=== PATIENT | male | born 1955 | race American Indian/Alaskan Native ===

== ENCOUNTER 2021-12-10 12:56 | Emergency (ER) | payer MEDICARE ==
--- NOTE | 2021-12-10 13:13 | Event Note ---
ED Screening Note ED Screening Note: SENT HERE BY OPTHA DUE TO LOSS OF PERIPHERAL VISION SHE IS CO FOR TIA/CVA PERIPHERAL VISION IS DEC PER PT NO HX CVA NO FOCAL DEF PT APPEARS ILL/WEAK HR 50 ON EXAM PMH HTN HEART TROUBLE VESTIBULAR DISEASE ASTHMA NO DM NO CVA/TIA NO CIG/ETOH RX- HAS LIST ASA IS ALL HE CAN REMEMBER This initial assessment/diagnostic orders/clinical plan/treatment(s) is/are subject to change based on patients health status, clinical progression and re- assessment by fellow clinical providers in the ED. Further treatment and workup at subsequent clinical providers discretion. Patient/guardian urged not to elope from the ED as their condition may be serious if not clinically assessed and managed. Initial orders include: RO TIA/CVA
[2021-12-10 14:04] LABS: Basophils % (Auto) 0.9 % (0.0-1.8); Eosinophils # (Auto) 0.2 K/mm3 (0.0-0.4); Eosinophils % (Auto) 4.8 % (0.0-4.3); Hematocrit 41.3 % (35.5-45.6); Hemoglobin 13.5 gm/dl (11.8-15.2); Lymphocytes % (Auto) 41.7 % (13.4-35.0); Mean Corpuscular HGB Conc 33 % (32-34); Mean Corpuscular Volume 85 fl (84-94); Monocytes # (Auto) 0.6 K/mm3 (0.0-0.8); Monocytes % (Auto) 11.7 % (0.0-7.3); Platelet Count 255 K/mm3 (140-440); Red Blood Count 4.85 M/mm3 (3.65-5.03); Red Cell Distribution Width 14.1 % (13.2-15.2)
--- NOTE | 2021-12-10 14:06 | Emergency Department Report ---
ED Eye Problem HPI - General Chief complaint: Eye Problems Stated complaint: POSSIBLE MILD STROKE Time Seen by Provider: 12/10/21 13:24 Source: patient Mode of arrival: Ambulatory Limitations: No Limitations - History of Present Illness Initial comments: Patient presents from his bi consultant office for visual changes. Last night while watching TV he noticed that the peripheral vision of his right eye seem to be off. He has had a retinal injury before. Patient went to his bi consultant today. They told him after examination that this was not a retinal issue. They were concerned for possible stroke and sent the patient here. Patient has no weakness in the arm or leg. He has not noticed any speech change. He has no paresthesias. Patient has only noticed this with the right lateral peripheral vision. - Related Data Allergies Allergy/AdvReac Type Severity Reaction Status Date / Time oxycodone Allergy Unknown Verified 12/10/21 13:02 Penicillins Allergy Unknown Verified 12/10/21 13:02 ED Review of Systems ROS: Stated complaint: POSSIBLE MILD STROKE Other details as noted in HPI Comment: All other systems reviewed and negative Constitutional: denies: fever Eyes: as per HPI ENT: denies: throat pain Respiratory: denies: cough Cardiovascular: denies: chest pain Endocrine: denies: unexplained weight loss Gastrointestinal: denies: abdominal pain Genitourinary: denies: dysuria Musculoskeletal: denies: back pain Skin: denies: rash Neurological: denies: headache Hematological/Lymphatic: denies: easy bruising ED Past Medical Hx - Past Medical History Previous Medical History?: Yes Hx Hypertension: Yes - Surgical History Past Surgical History?: No - Family History Family history: hypertension ED Physical Exam - General Limitations: No Limitations, Other (Pulse ox noted normal) General appearance: alert, in no apparent distress - Head Head exam: Present: atraumatic, normocephalic - Eye Eye exam: Present: normal appearance, PERRL, EOMI. Absent: scleral icterus - ENT ENT exam: Present: normal orophraynx, normal external ear exam - Neck Neck exam: Present: normal inspection. Absent: meningismus - Respiratory Respiratory exam: Present: normal lung sounds bilaterally. Absent: respiratory distress - Cardiovascular Cardiovascular Exam: Present: regular rate, normal rhythm - GI/Abdominal GI/Abdominal exam: Present: soft. Absent: tenderness - Extremities Exam Extremities exam: Present: normal capillary refill - Back Exam Back exam: Absent: CVA tenderness (R), CVA tenderness (L) - Neurological Exam Neurological exam: Present: alert, oriented X3, CN II-XII intact, normal gait, other (Patient does seem to have a visual field deficit involving the lateral vision in the right eye only. There is no apparent visual field deficit involving the left eye.). Absent: reflexes normal - Psychiatric Psychiatric exam: Present: normal affect, normal mood - Skin Skin exam: Present: warm, dry ED Course Vital Signs 12/10/21 13:02 Temperature 97.8 F Pulse Rate 56 L Respiratory 18 Rate Blood Pressure 146/84 O2 Sat by Pulse 98 Oximetry - Reevaluation(s) Reevaluation #1: 12/10/21 14:06 Patient had been seen as part of the MSE process. I assumed care with labs and CT pending. Old records noted. ED Medical Decision Making - Lab Data Result diagrams: 12/10/21 13:41 Critical Care Time: No Critical care attestation.: If time is entered above; I have spent that time in minutes in the direct care of this critically ill patient, excluding procedure time. ED Disposition Clinical Impression: Vision disturbance Disposition: 01 HOME / SELF CARE / HOMELESS Is pt being admited?: No Condition: Stable Instructions: Visual Disturbances Additional Instructions: Drink any water. Return for problems. Continue to follow-up with your bi consultant as well as the specialist. Follow-up with your family doctor as well. Referrals: PRIMARY MD SAMUEL [Primary Care Provider] - 3-5 Days JULIOCESAR AYALA MD [Staff Physician] - 3-5 Days MANISHA SUÁREZ MD [Staff Physician] - 3-5 Days
--- NOTE | 2021-12-10 14:20 | Cat Scan Report ---
CT head/brain wo con INDICATION: Weakness. TECHNIQUE: Routine CT head. All CT scans at this location are performed using CT dose reduction for A FELICIA by means of automated exposure control. COMPARISON: None. FINDINGS: Intracranial: Addison-white matter differentiation is maintained. No intracranial hemorrhage. No extra a xial collection. No hydrocephalus. No herniation. Sinuses: Prior sinus surgery with persistent significant mucosal thickening throughout the paranasal sinuses. Hyperostosis botello consistent with chronicity. There is high attenuation seen consistent wit h inspissated mucus or benign allergic fungal colonization. Mastoid air cells are clear. Orbits: Globes are intact. Calvarium: No acute fracture. IMPRESSION: 1. No acute intracranial abnormality. 2 . Severe pansinusitis. Signer Name: Rd Blankenship MD Signed: 12/10/2021 2:15 PM Workstation Name: [id number]
[2021-12-10 15:24] LABS: Alanine Aminotransferase 13 units/L (7-56); Albumin 4.3 g/dL (3.9-5); BUN/Creatinine Ratio 14; Blood Urea Nitrogen 13 mg/dL (9-20); Calcium 9.6 mg/dL (8.4-10.2); Hemolysis Index 13
[2021-12-10 17:02] LABS: Bilirubin,Urine NEG (Negative); Blood,Urine NEG (Negative); Color,Urine Yellow (Yellow); Mucus,Urine FEW /HPF; Protein,Urine <15 mg/dL mg/dL (Negative); Urobilinogen,Urine < 2.0 mg/dL (<2.0); WBC,Urine < 1.0 /HPF (0.0-6.0)
--- NOTE | 2021-12-10 17:05 | Cat Scan Report ---
CT head/brain w con INDICATION / CLINICAL INFORMATION: 66 years Male; assess for cavernous sinus thrombosis 100 ML OMNI 300 . TECHNIQUE: Routine CT head without contrast. All CT scans at this location are performed using CT dos e reduction for ALARA by means of automated exposure control. COMPARISON: 12/10/2021 FINDINGS: BRAIN / INTRACRANIAL CONTENTS: No acute hemorrhage, mass effect, midline shift, hydrocephalus, or acu te, large territorial infarct. No signs of significant atrophy or chronic infarct. No significant whi te matter abnormality seen. I see no signs of abnormal enhancement following contrast administration. Specifically, no signs of c avernous sinus thrombosis appreciated. CRANIOCERVICAL JUNCTION: No significant abnormality. ORBITS: No significant abnormality of visualized orbits. SINUSES / MASTOIDS: There is near complete opacification of the frontal sinuses, ethmoids, and maxill juliette antra. Mild to moderate mucosal thickening seen in the sphenoid sinuses. Air-fluid level is seen in the left sphenoid sinus. ADDITIONAL FINDINGS: None. IMPRESSION: 1. No focal mass, hemorrhage, hydrocephalus, or acute, large territorial infarct. 2. Sinus disease, as described above. Signer Name: Dave Beltran MD, III Signed: 12/10/2021 5:01 PM Workstation Name: [id number]
--- NOTE | 2021-12-10 17:08 | Emergency Department Report ---
HPI - General Chief Complaint: Eye Problems Time Seen by Provider: 12/10/21 13:24 ED Past Medical Hx - Past Medical History Previous Medical History?: Yes Hx Hypertension: Yes - Surgical History Past Surgical History?: No ED Review of Systems ROS: Stated complaint: POSSIBLE MILD STROKE Other details as noted in HPI Constitutional: denies: fever Eyes: as per HPI ENT: denies: throat pain Respiratory: denies: cough Cardiovascular: denies: chest pain Endocrine: denies: unexplained weight loss Gastrointestinal: denies: abdominal pain Genitourinary: denies: dysuria Musculoskeletal: denies: back pain Skin: denies: rash Neurological: denies: headache Hematological/Lymphatic: denies: easy bruising Physical Exam - Physical Exam Vital Signs: Vital Signs 12/10/21 12/10/21 13:02 16:11 Temperature 97.8 F Pulse Rate 56 L 64 Respiratory 18 18 Rate Blood Pressure 146/84 Blood Pressure 144/81 [Left] O2 Sat by Pulse 98 98 Oximetry ED Course Vital Signs 12/10/21 12/10/21 13:02 16:11 Temperature 97.8 F Pulse Rate 56 L 64 Respiratory 18 18 Rate Blood Pressure 146/84 Blood Pressure 144/81 [Left] O2 Sat by Pulse 98 98 Oximetry ED Medical Decision Making - Lab Data Result diagrams: 12/10/21 13:41 12/10/21 13:41 - EKG Data -: EKG Interpreted by Me - EKG Data 12/10/21 17:07 Sinus bradycardia. Normal axis. First-degree AV block. No ectopy. There are deeply inverted T waves noted in leads V3 through V6 as well as I, II, III, and aVF. No significant ST segment abnormalities - Medical Decision Making Signout received from Dr. Weiss. This is a 66-year-old male presenting with right eye lateral visual field defect. He has been examined by his obgyn specialist who ruled out retinal detachment. He has had CT of the head which shows no signs of ischemia or stroke. Labs are still pending. Labs reveal no significant leukocytosis or anemia. Kidney function is normal and there are no significant electrolyte abnormalities. Troponin is negative. CT of the head reveals severe pansinusitis but no other findings. I have ordered IV contrasted CT of the head to assess for evidence of cavernous sinus thrombosis. I went to assess the patient who states he feels fine and his symptoms are unchanged. He also disclosed that he has a chronic vestibular disorder which causes him chronic dizziness and disequilibrium with balance issues. I performed an examination and he has no focal neurologic deficits. No pain with extraocular movements. The patient's EKG reveals deeply inverted T waves in the inferior and lateral leads. The patient has no chest pain or ACS symptoms. I discussed with the patient and he disclosed that he has had a significantly abnormal EKG for "a long time" I discussed the EKG with Dr. Dinh who reviewed it and says that there is no STEMI and findings are likely chronic Contrasted CT of the head shows no evidence of cavernous sinus thrombosis or other acute abnormality with the exception of pansinusitis. I discussed with the patient his pansinusitis and he says this has been a chronic issue for him for which he is seeing both ENT and neurology. He states that his neurologist is prescribing him steroids for this issue and it is a chronic problem. Given that it is chronic in nature we will not initiate new medications but will defer to the patient's specialist for further management. Patient was given referral to ENT and neurology and I discussed the importance of following up with his obgyn specialist as well as his neurologist and ENT doctor for further management of his vision issues. The patient expressed understanding and agreement with this plan of care. He will return for any new concerning symptoms. Critical care attestation.: If time is entered above; I have spent that time in minutes in the direct care of this critically ill patient, excluding procedure time. ED Disposition Clinical Impression: Vision disturbance, Pansinusitis Disposition: 01 HOME / SELF CARE / HOMELESS Is pt being admited?: No Condition: Stable Instructions: Sinusitis, Adult, Visual Disturbances Additional Instructions: Drink sufficient water. Return for worsening symptoms or new health concerns continue to follow-up with your neurologist, obgyn specialist as well as ENT specialist for further management and follow-up with your family doctor as well. Referrals: [facility] [Provider Group] - 3-5 Days JAILYN TEIXEIRA MD [Referring] - 3-5 Days MANISHA SUÁREZ MD [Staff Physician] - 3-5 Days
[2021-12-10 18:21] VITALS: BP 149/75
--- NOTE | 2021-12-11 14:40 | Electrocardiograph Report ---
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
== END 2021-12-10 18:21 | disposition home or self-care (01) ==
LOC: ED 12:56
DX: H53.141 Visual discomfort, right eye (principal); J32.4 Chronic pansinusitis; I10 Essential (primary) hypertension; Z88.0 Allergy status to penicillin; Z91.09 Other allergy status, other than to drugs and biological substances; R42 Dizziness and giddiness
CPT/HCPCS: 36415; 70450; 70460; 80053; 81001; 83735; 84100; 84443; 84484; 85025; 93005; 93010; 99284; Q9967

== ENCOUNTER 2022-01-08 11:47 | Emergency (ER) | payer MEDICARE ==
[2022-01-08 12:00] VITALS: BP 128/64
[2022-01-08 12:58] LABS: Basophils % (Auto) 0.8 % (0.0-1.8); Eosinophils # (Auto) 0.2 K/mm3 (0.0-0.4); Eosinophils % (Auto) 4.2 % (0.0-4.3); Hematocrit 39.6 % (35.5-45.6); Hemoglobin 12.8 gm/dl (11.8-15.2); Lymphocytes % (Auto) 42.2 % (13.4-35.0); Mean Corpuscular HGB Conc 32 % (32-34); Mean Corpuscular Volume 87 fl (84-94); Monocytes # (Auto) 0.6 K/mm3 (0.0-0.8); Monocytes % (Auto) 13.3 % (0.0-7.3); Platelet Count 253 K/mm3 (140-440); Red Blood Count 4.55 M/mm3 (3.65-5.03); Red Cell Distribution Width 14.6 % (13.2-15.2)
--- NOTE | 2022-01-08 13:13 | Emergency Department Report ---
ED Chest Pain HPI - General Chief Complaint: Chest Pain Stated Complaint: CHEST PAIN Time Seen by Provider: 01/08/22 12:54 Source: patient Mode of arrival: Ambulatory Limitations: No Limitations - History of Present Illness Initial Comments: 66-year-old male with a history of CAD with stent placed in October 2020, cardiomyopathy, hypertension presents to the hospital planing of chest pain for few days. Pain is in the center of his chest at the lower sternal area. Pain has sharp reproducible with palpation and with twisting of his torso from left to right. Pain is rated 3/10 in intensity but it was rated 10/10 last night. Patient denies associated symptoms of nausea, vomiting, diaphoresis, lightheadedness, leg edema, or calf tenderness. He is compliant with all his medications and denies recent travel or history of PE/DVT. Patient states he walks daily. His last walk was yesterday and denies any exacerbation of chest pain or associated symptoms during his walk. 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 Patient states his EKG has been abnormal for "a long time". Severity scale (0 -10): 5 - Related Data Allergies Allergy/AdvReac Type Severity Reaction Status Date / Time oxycodone Allergy Unknown Verified 12/10/21 13:02 Penicillins Allergy Unknown Verified 12/10/21 13:02 Heart Score - HEART Score History: Slightly suspicious EKG: Non-specific Age: > 65 Risk factors: > 3 risk factors or hx of atherosclerotic disease Troponin: < normal limit HEART Score: 5 - EKG Read Time Time EKG Completed: 12:04 EKG Read Time: 12:09 ED Review of Systems ROS: Stated complaint: CHEST PAIN Other details as noted in HPI Comment: All other systems reviewed and negative ED Past Medical Hx - Past Medical History Hx Hypertension: Yes Hx Heart Attack/AMI: Yes (Cardiomyopathy, CAD) - Surgical History Hx Coronary Stent: Yes (oct 2020) - Family History Family history: CAD/IN - Social History Smoking Status: Never Smoker ED Physical Exam - General Limitations: No Limitations - Other Other exam information: General: No acute distress Head: Atraumatic Eyes: normal appearance ENT: Moist mucous membranes Neck: Normal appearance, no midline tenderness Chest: Clear to auscultation bilaterally, reproducible lower sternal chest wall tenderness to palpation with movement CV: Regular rate and rhythm Abdomen: Soft, normal bowel sounds, nontender, nondistended, no rebound or guard ing Back: Normal inspection Extremity: Normal inspection, full range of motion, no calf tenderness or leg edema Neuro: Alert O x 3, no facial asymmetry, speech clear, no gross motor sensory deficit Psych: Appropriate behavior Skin: No rash ED Course Vital Signs 01/08/22 11:55 Temperature 98.5 F Pulse Rate 53 L Respiratory 18 Rate Blood Pressure 128/64 [Right] O2 Sat by Pulse 97 Oximetry - Consultations Consultation #1: 01/08/22 15:48 case d/w DR Mcgraw, also confirms deep t waves are chronic. will encourage outpt f/u in office DARIAN score - Darian Score Age > 65: (0) No Aspirin use within the Past 7 Days: (1) Yes 3 or more CAD Risk Factors: (1) Yes 2 or more Angina events in past 24 hrs: (0) No Known CAD with more than 50% Stenosis: (1) Yes Elevated Cardiac Markers: (0) No ST Deviation Greater than 0.5mm: (1) Yes DARIAN Score: 4 ED Medical Decision Making - Lab Data Result diagrams: 01/08/22 12:43 01/08/22 12:43 Lab Results 01/08/22 01/08/22 01/08/22 Range/Units 12:43 12:43 12:43 WBC 4.7 (4.5-11.0) K/mm3 RBC 4.55 (3.65-5.03) M/mm3 Hgb 12.8 (11.8-15.2) gm/dl Hct 39.6 (35.5-45.6) % MCV 87 (84-94) fl MCH 28 (28-32) pg MCHC 32 (32-34) % RDW 14.6 (13.2-15.2) % Plt Count 253 (140-440) K/mm3 Lymph % (Auto) 42.2 H (13.4-35.0) % [place] % (Auto) 13.3 H (0.0-7.3) % Eos % (Auto) 4.2 (0.0-4.3) % Baso % (Auto) 0.8 (0.0-1.8) % Lymph # (Auto) 2.0 (1.2-5.4) K/mm3 [place] # (Auto) 0.6 (0.0-0.8) K/mm3 Eos # (Auto) 0.2 (0.0-0.4) K/mm3 Baso # (Auto) 0.0 (0.0-0.1) K/mm3 Seg Neutrophils % 39.5 L (40.0-70.0) % Seg Neutrophils # 1.9 (1.8-7.7) K/mm3 PT 13.9 (12.2-14.9) Sec. INR 0.97 (0.87-1.13) APTT 27.6 (24.2-36.6) Sec. Sodium 142 (137-145) mmol/L Potassium 4.4 (3.6-5.0) mmol/L Chloride 107.1 H (98-107) mmol/L Carbon Dioxide 22 (22-30) mmol/L Anion Gap 17 mmol/L BUN 10 (9-20) mg/dL Creatinine 0.9 (0.8-1.3) mg/dL Estimated GFR > 60 ml/min BUN/Creatinine Ratio 11 % Glucose 102 H (75-100) mg/dL Calcium 8.8 (8.4-10.2) mg/dL Total Bilirubin 0.20 (0.1-1.2) mg/dL AST 14 (5-40) units/L ALT 11 (7-56) units/L Alkaline Phosphatase 76 (35-129) units/L Troponin T < 0.010 (0.00-0.029) ng/mL Total Protein 7.1 (6.3-8.2) g/dL Albumin 4.1 (3.9-5) g/dL Albumin/Globulin Ratio 1.4 % /02/26 Range/Units 15:48 WBC (4.5-11.0) K/mm3 RBC (3.65-5.03) M/mm3 Hgb (11.8-15.2) gm/dl Hct (35.5-45.6) % MCV (84-94) fl MCH (28-32) pg MCHC (32-34) % RDW (13.2-15.2) % Plt Count (140-440) K/mm3 Lymph % (Auto) (13.4-35.0) % [place] % (Auto) (0.0-7.3) % Eos % (Auto) (0.0-4.3) % Baso % (Auto) (0.0-1.8) % Lymph # (Auto) (1.2-5.4) K/mm3 [place] # (Auto) (0.0-0.8) K/mm3 Eos # (Auto) (0.0-0.4) K/mm3 Baso # (Auto) (0.0-0.1) K/mm3 Seg Neutrophils % (40.0-70.0) % Seg Neutrophils # (1.8-7.7) K/mm3 PT (12.2-14.9) Sec. INR (0.87-1.13) APTT (24.2-36.6) Sec. Sodium (137-145) mmol/L Potassium (3.6-5.0) mmol/L Chloride (98-107) mmol/L Carbon Dioxide (22-30) mmol/L Anion Gap mmol/L BUN (9-20) mg/dL Creatinine (0.8-1.3) mg/dL Estimated GFR ml/min BUN/Creatinine Ratio % Glucose (75-100) mg/dL Calcium (8.4-10.2) mg/dL Total Bilirubin (0.1-1.2) mg/dL AST (5-40) units/L ALT (7-56) units/L Alkaline Phosphatase (35-129) units/L Troponin T < 0.010 (0.00-0.029) ng/mL Total Protein (6.3-8.2) g/dL Albumin (3.9-5) g/dL Albumin/Globulin Ratio % - EKG Data -: EKG Interpreted by Ct EKG shows normal: sinus rhythm, ST-T waves (deep inf and lat t wave inversions, lvh) - EKG Data When compared to previous EKG there are: no significant change - Radiology Data Radiology results: report reviewed CHEST 1 VIEW 01/08/2022 12:43 PM INDICATION / CLINICAL INFORMATION: Chest Pain. COMPARISON: None available. FINDINGS: SUPPORT DEVICES: None. HEART / MEDIASTINUM: No significant abnormality. LUNGS / PLEURA: No significant pulmonary abnormality. No significant pleural effusion. No pneumothorax. ADDITIONAL FINDINGS: No significant additional findings. IMPRESSION: 1. No acute abnormality of the chest. - Medical Decision Making 66-year-old male with past medical history of CAD with reproducible anterior chest wall tenderness without any associated symptoms. EKG unchanged from prev ious. No acute findings on labs or chest x-ray. Troponin negative x2. Case discussed with cardiology. Outpatient follow-up advised Critical Care Time: No Critical care attestation.: If time is entered above; I have spent that time in minutes in the direct care of this critically ill patient, excluding procedure time. ED Disposition Clinical Impression: Chest wall pain Disposition: 01 HOME / SELF CARE / HOMELESS Is pt being admited?: No Does the pt Need Aspirin: No Condition: Stable Instructions: Chest Wall Pain Additional Instructions: Take Tylenol or Motrin as needed for pain. Follow-up with your doctor or doctor/clinic provided. Return if symptoms worsen as indicated by your discharge instructions. Referrals: SENA RUGGIERO MD [Primary Care Provider] - 3-5 Days IRAIDA MCGRAW MD [Staff Physician] - 3-5 Days Time of Disposition: 16:53
--- NOTE | 2022-01-08 13:19 | XRay Report ---
CHEST 1 VIEW 01/08/2022 12:43 PM INDICATION / CLINICAL INFORMATION: Chest Pain. COMPARISON: None available. FINDINGS: SUPPORT DEVICES: None. HEART / MEDIASTINUM: No significant abnormality. LUNGS / PLEURA: No significant pulmonary abnormality. No significant pleural effusion. No pneumothora x. ADDITIONAL FINDINGS: No significant additional findings. IMPRESSION: 1. No acute abnormality of the chest. Signer Name: Ranjan Gillespie MD Signed: 01/08/2022 1:14 PM Workstation Name: [id number]
[2022-01-08 13:28] LABS: INR 0.97 (0.87-1.13)
[2022-01-08 13:36] LABS: Alanine Aminotransferase 11 units/L (7-56); Albumin 4.1 g/dL (3.9-5); BUN/Creatinine Ratio 11; Blood Urea Nitrogen 10 mg/dL (9-20); Calcium 8.8 mg/dL (8.4-10.2); Hemolysis Index 5
[2022-01-08 14:46] LABS: Partial Thromboplastin Time 27.6 Sec. (24.2-36.6)
--- NOTE | 2022-01-08 17:43 | Electrocardiograph Report ---
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
== END 2022-01-08 17:06 | disposition home or self-care (01) ==
LOC: ED 11:47
DX: R07.89 Other chest pain (principal); I10 Essential (primary) hypertension; Z88.0 Allergy status to penicillin; Z88.5 Allergy status to narcotic agent; Z79.899 Other long term (current) drug therapy
CPT/HCPCS: 36415; 71045; 80053; 84484; 85025; 85610; 85730; 93005; 93010; 99283